=== PATIENT | male | born 1965 | race Caucasian/White ===

== ENCOUNTER 2020-01-11 08:12 | Emergency (ER) | payer MEDICARE, SELFPAY ==
--- NOTE | ~2020-01-11 | CT_ITS ---
EXAMINATION: CT abdomen pelvis wo con DATE: 01/11/2020 08:45 INDICATION: Renal colic. History of renal stones. Heart size normal. No significant pleural or perica rdial effusion. TECHNIQUE: Computed tomography (CT) of the abdomen and pelvis was performed without intravenous contr ast. The dose-length product was 256.32 mGy-cm. Automated exposure control and iterative reconstructi on technique were employed. COMPARISON: None. FINDINGS: Heart size normal. No significant pleural or pericardial effusion. Calcified granuloma righ t lower lobe. The liver, spleen, pancreas, adrenal glands and kidneys are unremarkable. Gallbladder is present. Non obstructive bowel gas pattern. No lymphadenopathy. There are wedge compression deformities of T11 and T12, likely chronic. No lymphadenopathy. There are surgical changes consistent with fusion at L4-5. IMPRESSION: 1. No acute abdominal abnormality. Reviewed, dictated and finalized at location B.
[2020-01-11 08:26] VITALS: BP 94/65; PULSE 91; RESP 18; TEMP 36.9; O2SAT 98
[2020-01-11] MEDS: KETOROLAC 30 MG/ML VIAL (*BKC) IV PUSH (08:37)
--- NOTE | 2020-01-11 08:37 | ED.GENADULT ---
HPI - General Adult General Chief complaint: Abdominal Pain Stated complaint: kidney stone Source: patient Mode of arrival: ambulatory Limitations: no limitations History of Present Illness HPI narrative: Tommy is a 54M with a PMH of kidney stones and HLD that presented to the ED with flank pain that radiated to the groin that started this morning. He has had kidney stones previously and they felt like this. It is associated with nausea and hematuria. No fevers, chills, dysuria, diarrhea/constipation, CP or SOB. Related Data Home Medications Medication Instructions Recorded Confirmed nabumetone 750 mg PO PRN 01/11/20 01/11/20 rosuvastatin 20 mg PO HS 01/11/20 01/11/20 Allergies Allergy/AdvReac Type Severity Reaction Status Date / Time vancomycin Allergy Mild Rash Verified 09/10/17 10:49 Review of Systems Constitutional: Constitutional: Denies chills, Denies fever(s) and Denies weakness Eyes: Eyes: Reports no additional eye complaints ENT: Reports system reviewed and no additional complaints, except as documented Cardiovascular: Cardiovascular: Reports no additional cardiovascular complaints Respiratory: Respiratory: Reports no additional respiratory complaints Gastrointestinal: Gastrointestinal: Reports as per HPI Genitourinary: Genitourinary: Reports as per HPI Musculoskeletal: Musculoskeletal: Reports no additional musculoskeletal complaints Integumentary/Breasts: Skin/Breast: Reports system reviewed and no additional complaints, except as docu Neurologic: Reports system reviewed and no additional complaints, except as documented Psychiatric: Psychiatric: Reports no additional psychiatric complaints Endocrine: Endocrine: Reports no additional endocrine complaints Hematologic/Lymphatic: Hematologic/Lymphatic: Reports no additional hematologic/lymphatic complaints Allergic/Immunologic: Allergic/Immunologic: Reports no additional allergic/immunologic complaints Exam Const: General: no acute distress Orientation/consciousness: patient oriented x3 Other: mild distress HENMT: Head: normal to inspection Eyes: Conjunctivae: conjunctivae normal Pupils: Equal, round and reactive pupils present Neck: Neck: normal visual inspection Chest: Chest palpation & inspection: normal inspection of the chest Resp: Effort & Inspection: normal respiratory effort, not labored, no retractions and no use of accessory muscles Cardio: Rate: regular rate Peripheral pulses: Peripheral pulses 2+ throughout Course Course Emergency Course: Tommy was seen and evaluated. I ordered UA, CT abd/pelvis w/o contrast and labs. EXAMINATION: CT abdomen pelvis wo con DATE: 01/11/2020 08:45 INDICATION: Renal colic. History of renal stones. Heart size normal. No significant pleural or pericardial effusion. TECHNIQUE: Computed tomography (CT) of the abdomen and pelvis was performed without intravenous contrast. The dose-length product was 256.32 mGy-cm. Automated exposure control and iterative reconstruction technique were employed. COMPARISON: None. FINDINGS: Heart size normal. No significant pleural or pericardial effusion. Calcified granuloma right lower lobe. The liver, spleen, pancreas, adrenal glands and kidneys are unremarkable. Gallbladder is present. Nonobstructive bowel gas pattern. No lymphadenopathy. There are wedge compression deformities of T11 and T12, likely chronic. No lymphadenopathy. There are surgical changes consistent with fusion at L4-5. IMPRESSION: 1. No acute abdominal abnormality. Labs showed leukocytosis at 16.7, and the UA showed blood, 3+ leukocytes, and bacteria. Futher history revealed that he may have passed stones when he arrived. While the symptoms are consitstent with renal colic pyelo cannot be ruled out. Will treat with keflex 1000mg BID for 10 day. Recommended ibuprofen for baseline pain control and norco for breakthrough pain. Vital Signs Vital signs: Vital Signs Temperature 98.4 F 01/10
[2020-01-11 08:42] LABS: Add Urine Microscopic? YES; Appearance Urine Sl Cloudy (Clear); Bilirubin Urine Negative (Negative); Blood Urine 3+ (Negative); Color Urine Yellow (Yellow); Glucose Urine UA Negative (Negative); Ketones Urine Negative (Negative); Leukocyte Esterase Ur 3+ (Negative); Nitrate Urine Negative (Negative); Protein Urine Trace (Negative)
[2020-01-11 08:56] LABS: Basophils Absolute Auto 0.05 K/mm3 (0.00-0.10); Basophils Percent Auto 0.3 % (0.0-1.0); Eosinophils Absolute Auto 0.06 K/mm3 (0.02-0.50); Eosinophils Percent Auto 0.4 % (1.0-6.0); Hematocrit 44.8 % (40.0-54.0); Hemoglobin 15.1 g/dL (14.0-18.0); Immature Granulocyte Absolute 0.09 K/mm3 (0.00-0.00); Immature Granulocyte Percent A 0.5 % (0.0-0.0); Lymphocytes Absolute Auto 1.09 K/mm3 (1.10-4.50); Lymphocytes Percent Auto 6.5 % (18.0-42.0); Mean Corpuscular HGB Conc 33.7 g/dL (32.0-36.0); Mean Corpuscular Hemoglobin 29.5 pg (27.0-31.0); Mean Corpuscular Volume 87.7 fL (78.0-102.0); Mean Platelet Volume 9.5 fl (8.7-11.0); Monocytes Absolute Auto 1.24 K/mm3 (0.10-0.90); Monocytes Percent Auto 7.4 % (2.0-11.0); Neutrophils Absolute Auto 14.2 K/mm3 (1.7-7.2); Neutrophils Percent Auto 84.9 % (50.0-70.0); Platelet Count Result 179 K/mm3 (150-420); Red Blood Count 5.11 M/mm3 (4.70-6.10); Red Cell Distribution Width 12.7 % (11.6-14.4); White Blood Count 16.7 K/mm3 (4.8-10.8)
[2020-01-11 08:57] LABS: Bacteria Urine 1+ /hpf; RBC Urine 21-50 /hpf (0-2); WBC Urine 31-50 /hpf (0-3)
[2020-01-11 09:13] LABS: Alanine Aminotransferase 31 U/L (16-63); Albumin Level 3.7 g/dL (3.4-5.0); Alkaline Phosphatase 111 U/L (46-116); Anion Gap 11 mmol/L (8-16); Aspartate Amino Transferase 19 U/L (15-37); Bilirubin,Total 1.3 mg/dL (0.00-1.00); Blood Urea Nitrogen 10 mg/dL (7-18); Carbon Dioxide 24 mmol/L (21-32); Chloride 102 mmol/L (98-108); Estimated CRCL calculation 88 ml/min; Estimated Glomerular Filt Rate > 60; Glucose 116 mg/dL (70-99); Lipase 83 U/L (73-393); Osmolality Calculated 284 mOsm/kg (285-295); Sodium 137 mmol/L (136-145); Total Protein 7.4 g/dL (6.4-8.2)
[2020-01-11 09:26] VITALS: BP 98/65; PULSE 86; O2SAT 98
== END 2020-01-11 09:43 | disposition home or self-care (01) ==
PROVIDERS: Emergency Provider Family Medicine; PCP Internal Medicine
DX: N23 Unspecified renal colic (principal); N39.0 Urinary tract infection, site not specified; E78.5 Hyperlipidemia, unspecified
CPT/HCPCS: 36415; 74176; 80053; 81001; 83690; 85025; 96374; 99283; 99284; J1885